=== PATIENT | female | born 1975 | race Caucasian/White ===

== ENCOUNTER 2016-10-26 18:02 | Emergency (ER) | payer OTHER ==
[~2016-10-26] VITALS: Ht 152.4 cm; Wt 62.0 kg
[2016-10-26 18:11] VITALS: Ht 152.4 cm; Wt 62.0 kg
--- NOTE | 2016-10-26 19:03 | RADRPT ---
PROCEDURE: Obstetrical ultrasound . CLINICAL INDICATION: Vaginal bleeding , demise TECHNIQUE: Multiple sonographic images of the pelvis were obtained utilizing a transabdominal tech nique. The images were reviewed on a PACS workstation. COMPARISON: None. FINDINGS: There is a single intrauterine present with the crown-rump length measuring 1.6 cm which c orresponds to a calculated gestational age of 8 weeks and 0 days. No heart tones are identifie d. The ovaries are not visualized. No significant free fluid is present within the pelvis. No abnormal adnexal masses are present. RPTAT: AA IMPRESSION: Single intrauterine at 8 weeks and 0 days. No heart tones noted, consistent with demise. .Gerardo Glasgow MD, Date Time Electronically viewed and signed by .Gerardo Glasgow MD, MD on 10/26/2016 19:02 .S/
[2016-10-26 20:48] LABS: ADD SCAN DIFF NO
[2016-10-26 20:53] LABS: BASOPHILS % 0.4 % (0.0-2.0); EOSINOPHILS # 0.2 10^3/ul (0.0-0.5); HEMATOCRIT 40.4 % (37.0-47.0); HEMOGLOBIN 12.7 g/dl (12.0-16.0); LYMPHOCYTES # 2.4 10^3/ul (0.8-2.9); LYMPHOCYTES % 31.3 % (15.0-51.0); MEAN CORPUSCULAR HEMOGLOBIN 24.6 pg (29.0-33.0); MEAN CORPUSCULAR HGB CONC 31.4 g/dl (32.0-37.0); MEAN CORPUSCULAR VOLUME 78.1 fl (82.0-101.0); MEAN PLATELET VOLUME 10.4 fl (7.4-10.4); MONOCYTE # 0.4 10^3/ul (0.3-0.9); MONOCYTES % 5.8 % (0.0-11.0); NEUTROPHIL # 4.6 10^3/ul (1.6-7.5); NEUTROPHILS % 60.1 % (39.0-77.0); PLATELET COUNT 266 10^3/UL (140-415); RED BLOOD COUNT 5.17 10^6/ul (4.20-5.40); RED CELL DISTRIBUTION WIDTH 15.7 % (11.5-14.5); WHITE BLOOD COUNT 7.6 10^3/ul (4.8-10.8)
[2016-10-26 20:57] LABS: ADD UMIC YES; URINE BILIRUBIN (Dip) NEGATIVE (NEGATIVE); URINE BLOOD (Dip) 3+ (NEGATIVE); URINE COLOR LT. YELLOW (YELLOW); URINE GLUCOSE (Dip) NEGATIVE (NEGATIVE); URINE KETONES (Dip) NEGATIVE (NEGATIVE); URINE LEUKOCYTE ESTERASE (Dip) TRACE (NEGATIVE); URINE NITRITE (Dip) NEGATIVE (NEGATIVE); URINE TOTAL PROTEIN (Dip) NEGATIVE (NEGATIVE); URINE UROBILINOGEN (Dip) 0.2 E.U./dL (0.1-1.0)
[2016-10-26 21:05] LABS: BACTERIA,URINE FEW; SQUAMOUS EPITHELIAL CELL,UR MODERATE; URINE RBCS >200 /HPF (0)
--- NOTE | 2016-10-26 21:34 | ERD ---
ER Documentation Chief Complaint Date/Time DATE: 10/26/16 TIME: 21:30 Chief Complaint Sent from for eval no heart tone HPI This 41-year-old female who presents to the emergency department today complaining of vaginal spotting that started yesterday. Patient states that she was 13 weeks by last menstrual period. Patient states that the vaginal bleeding started heavier today. States that last week she had an ultrasound was told there is no heart tones. States that she has some lower pelvic pain but denies any dysuria, vomiting, fevers or chills. States she has not taken any medication for the pain. ROS All systems reviewed and are negative except as per history of present illness. Medications Home Meds Active Scripts Acetaminophen* (Tylophen*) 500 Mg Capsule, 1 CAP PO Q6H Y for PAIN AND OR ELEVATED TEMP, #30 CAP Prov:BOBY PEREZ PA-C 10/26/16 Allergies Allergies: Coded Allergies: No Known Allergy (Unverified , 10/26/16) PMhx/Soc Medical and Surgical Hx: pt denies Medical Hx, pt denies Surgical Hx Hx Alcohol Use: No Hx Substance Use: No Hx Tobacco Use: No Smoking Status: Never smoker Physical Exam Vitals Vital Signs Date Time Temp Pulse Resp B/P Pulse Ox O2 Delivery O2 Flow Rate FiO2 10/26/16 18:11 98.3 80 20 137/79 97 Physical Exam Const: No acute distress Head: Atraumatic Eyes: Normal Conjunctiva ENT: Normal External Ears, Nose and Mouth. Neck: Full range of motion..~ No meningismus. Resp: Clear to auscultation bilaterally Cardio: Regular rate and rhythm, no murmurs Abd: Soft, suprapubic pain non distended. Normal bowel sounds. No right lower quadrant pain. No left lower quadrant pain. Skin: No petechiae or rashes Back: No midline or flank tenderness Ext: No cyanosis, or edema Neur: Awake and alert Psych: Normal Mood and Affect Result Diagram: 10/26/162019 Results 24 hrs Laboratory Tests Test 10/26/16 20:20 10/26/16 20:50 White Blood Count 7.610^3/ul Red Blood Count 5.1710^6/ul Hemoglobin 12.7g/dl Hematocrit 40.4% Mean Corpuscular Volume 78.1fl Mean Corpuscular Hemoglobin 24.6pg Mean Corpuscular Hemoglobin Concent 31.4g/dl Red Cell Distribution Width 15.7% Platelet Count 67855^3/UL Mean Platelet Volume 10.4fl Neutrophils % 60.1% Lymphocytes % 31.3% Monocytes % 5.8% Eosinophils % 2.0% Basophils % 0.4% Nucleated Red Blood Cells % 0.0/100WBC Neutrophils # 4.610^3/ul Lymphocytes # 2.410^3/ul Monocytes # 0.410^3/ul Eosinophils # 0.210^3/ul Basophils # 0.010^3/ul Nucleated Red Blood Cells # 0.010^3/ul Beta HCG, Quantitative 3242.9mIU/ml Urine Color LT. YELLOW Urine Clarity CLEAR Urine pH 5.5 Urine Specific [place] 1.020 Urine Ketones NEGATIVE Urine Nitrite NEGATIVE Urine Bilirubin NEGATIVE Urine Urobilinogen 0.2 E.U./dL Urine Leukocyte Esterase TRACE Urine Microscopic RBC >200/HPF Urine Microscopic WBC 2-5/HPF Urine Squamous Epithelial Cells MODERATE Urine Bacteria FEW Urine Hemoglobin 3+ Urine Glucose NEGATIVE% Urine Total Protein NEGATIVE DIAGNOSTIC IMAGING REPORT Patient: YUDI BAY : 1975 Age: 41 Sex: F MR #: [id number] DOS: 10/26/16 1818 Ordering MD: ELLEN CHANG Location: E/R Room/Bed: PROCEDURE: Obstetrical ultrasound . CLINICAL INDICATION: Vaginal bleeding , demise TECHNIQUE: Multiple sonographic images of the pelvis were obtained utilizing a transabdominal technique. The images were reviewed on a PACS workstation. COMPARISON: None. FINDINGS: There is a single intrauterine present with the crown-rump length measuring 1.6 cm which corresponds to a calculated gestational age of 8 weeks and 0 days. No heart tones are identified. The ovaries are not visualized. No significant free fluid is present within the pelvis. No abnormal adnexal masses are present. RPTAT: AA IMPRESSION: Single intrauterine at 8 weeks and 0 days. No heart tones noted, consistent with demise. .Gerardo Glasgow MD, MD Date Time Electronically viewed and signed by .Gerardo Glasgow MD, on 10/26/2016 19: 02 .S/ CC: ELLEN CHANG Procedures/[facility] This a 41-year-old female who presents to the emergency department today for vaginal bleeding in that started yesterday. Per the patient and patient's has been called wet sander , Dr. Arellano who told the patient to come to the emergency room. Patient had indicated that last week she was told she had no heart tones. Given patient's complaint I did obtain a complete OB workup. Laboratory work shows no elevated white blood cell count. Her hemoglobin is within normal limits. Her platelets are within normal limits. UA shows trace leukocyte esterase. Negative nitrates. Rh status O + Beta quant hCG 3242.9 Ultrasound shows a single intrauterine at 8 weeks and 0 days. There are no heart tones identified most consistent with demise. There is no significant free fluid in the pelvis and there are no abnormal adnexal masses present. I have explained this to the patient. Patient declined pain medication here in the emergency department. She will be prescription for Tylenol for home. Patient was instructed to follow-up tomorrow with Dr. Briggs repeat beta quant in 48 hours I explained to the patient that she may continue bleeding. Patient and understood At this time the patient is stable for discharge and outpatient management. Patient should follow up with their PCP in the next 1-2 days. They may return to the emergency department sooner for any persistent or worsening of symptoms. Patient understood and agreed with the plan. Departure Diagnosis: Primary Impression: Vaginal bleeding in patient at less than 20 weeks gestation Condition: BOBY Mosher PA-C October 26, 2016 21:34
[2016-10-26] MEDS ORDERED: ACET500C5 PO (22:20)
[2016-10-26 22:43] VITALS: BP 132/71; PULSE 81; RESP 16
== END 2016-10-26 22:44 | disposition home or self-care (01) ==
LOC: FTE 18:02
DX: O20.9 Hemorrhage in early pregnancy, unspecified (principal); R10.2 Pelvic and perineal pain; Z3A.08 8 weeks gestation of pregnancy
CPT/HCPCS: 76801; 81001; 84702; 85025; 86900; 86901; Z7502; 81003